=== PATIENT | male | born 1960 | race Caucasian/White ===

== ENCOUNTER 2018-03-28 10:45 | Emergency (ER) | payer BC ==
[2018-03-28] MEDS: MORPHINE SULFATE 10 MG/ML VIAL. IM (11:21)
[2018-03-28] MEDS: diazePAM 5 MG TABLET PO (11:21)
== END 2018-03-28 12:29 | disposition home or self-care (01) ==
LOC: ER 10:45
DX: G89.29 Other chronic pain (principal); M54.5 Low back pain; E78.00 Pure hypercholesterolemia, unspecified; I10 Essential (primary) hypertension
CPT/HCPCS: 96372; 99283; J2270

== ENCOUNTER 2018-04-01 21:56 | Emergency (ER) | payer BC ==
[2018-04-01] MEDS: KETOROLAC 60 MG/2 ML INJ. IM (23:31)
[2018-04-01] MEDS: DEXAMETHASONE SOD PHOS 20 MG/5 ML VIAL. IM (23:32)
== END 2018-04-01 23:35 | disposition home or self-care (01) ==
LOC: ER 23:35
DX: G89.29 Other chronic pain (principal); M54.41 Lumbago with sciatica, right side; M79.601 Pain in right arm; M79.651 Pain in right thigh; E78.00 Pure hypercholesterolemia, unspecified; I10 Essential (primary) hypertension
CPT/HCPCS: 96372; 99284; J1100; J1885

== ENCOUNTER 2018-04-03 18:22 | Emergency (ER) | payer BC ==
[2018-04-03] MEDS: IBUPROFEN 800 MG TABLET. PO (19:15)
[2018-04-03] MEDS: HYDROcodone/APAP 5/325MG 1 TAB TABLET PO (19:15)
== END 2018-04-03 19:31 | disposition home or self-care (01) ==
LOC: ER 18:22
DX: G89.29 Other chronic pain (principal); M54.9 Dorsalgia, unspecified; E78.00 Pure hypercholesterolemia, unspecified; I10 Essential (primary) hypertension
CPT/HCPCS: 99283

== ENCOUNTER → 2018-04-06 | Outpatient (CLI) | payer BC ==
[2018-04-03 18:30] VITALS: BP 129/79
[~2018-04-06] MED LIST: DIAZ5TAB PO; IBUP-1060 PO; OXYC-323 PO; TRAM50TA PO
--- NOTE | 2018-04-06 14:06 | KCIC ---
MRI of the lumbar spine without contrast 04/06/2018 CLINICAL HISTORY: Low back pain which radiates down the right leg TECHNIQUE: Unenhanced T1-weighted and T2-weighted sagittal and axial and inversion recovery sagittal images of the lumbar spine were obtained. FINDINGS: Comparison is made to radiographs lumbar spine dated 01/09/2006. Minimal S-shaped curvature of the thoracolumbar spine is seen. Degenerative signal changes and loss of height are seen involving the T12-L1 disc. Degenerative signal changes are seen involving the L3-4 disc. Degenerative signal changes are seen within the marrow surrounding the T12-L1 1 discs. The conus medullaris is normal in position and signal characteristics. At the T12-L1 disc space there is a moderate generalized disc bulge. Superimposed on this disc bulge is a focal central disc protrusion. This measures 5 mm in AP diameter. Degenerative changes are seen involving the facet joints bilaterally. There is prominence of the posterior epidural fat. The disc bulge is eccentric to the left. These findings when combined result in mild to moderate left greater than right central spinal canal stenosis. No neural foraminal stenosis is seen. At the L1-2 disc space is a mild generalized disc bulge. Superimposed on this disc bulge is a right paracentral focal disc protrusion. This measures 3 mm in AP diameter. Degenerative changes are seen involving the facet joints bilaterally. There is mild ligamentum flavum hypertrophy bilaterally. There is prominence of the posterior epidural fat. These findings when combined result in mild right greater than left central spinal canal stenosis. No neural foraminal stenosis is seen. At the L2-3 disc space there is a moderate generalized disc bulge. Degenerative changes are seen involving the facet joints bilaterally. The disc bulge is eccentric to the right. There is mild to moderate ligamentum flavum hypertrophy bilaterally. Prominence of the posterior epidural fat is seen. These findings when combined result in mild to moderate central spinal canal stenosis. No neural foraminal stenosis is seen. Superimposed on the disc bulge is a right paracentral/lateral focal disc herniation which extrudes inferiorly as an extruded disc fragment. This fragment measures 2.1 x 1.0 x 0.5 cm in craniocaudal, transverse and AP dimensions. It extrudes inferiorly to the mid/inferior aspect of the L3 vertebral body. This deforms the right anterolateral aspect of the thecal sac resulting in moderate to severe right lateral central spinal canal stenosis at the superior/mid L3 level and appears to impinge to some degree upon the right L3 nerve root within the right lateral aspect of the central spinal canal. At the L4-5 disc space there is a moderate generalized disc bulge. This is eccentric to the right. Degenerative changes are seen involving the facet joints bilaterally. There is mild to moderate ligamentum flavum hypertrophy bilaterally. There is prominence of the posterior epidural fat. Superimposed on the disc bulge is a right lateral focal disc protrusion. This measures 4 mm in AP diameter. These findings when combined result in mild to moderate central spinal canal stenosis. Mild right neural foraminal stenosis is seen. The left neural foramen is patent. At the L4-5 disc space there is a mild generalized disc bulge. Superimposed on this disc bulge is a focal central disc protrusion. This measures 3 mm in AP diameter. Degenerative changes are seen involving the facet joints bilaterally. There is moderate ligamentum flavum hypertrophy bilaterally. Small facet joint effusions are seen. These findings when combined result in mild central spinal canal stenosis. No neural foraminal stenosis is seen. At the L5-S1 disc space there is a mild generalized disc bulge. Degenerative changes are seen involving the facet joints bilaterally. These findings do not result in significant central spinal canal or neural foraminal stenosis. IMPRESSION: The changes of degenerative disc disease are seen involving the thoracolumbar junction and throughout the lumbar spine. These findings result in mild to moderate left greater than right central spinal canal stenosis at T12-L1, mild right greater than left central spinal canal stenosis at L1-2, mild to moderate central spinal canal stenosis at L2-3 and L4-5 and mild central spinal canal stenosis at L4-5. Mild right neural foraminal stenosis is seen at L4-5. At the L2-3 disc space a right paracentral/lateral focal disc herniation is seen which extrudes inferiorly as a disc fragment. This results in moderate to severe right lateral central spinal canal stenosis at the superior/mid L3 level and appears to impinge to some degree upon the right L3 nerve root within the right lateral aspect of the central spinal canal. Electronically signed by: Adelfo Montague MD (04/06/2018 2:02 PM) [email or web address]
== END | disposition home or self-care (01) ==
LOC: KCIC MRI 12:07
PROVIDERS: ATTEND Internal Medicine
DX: M51.16 Intervertebral disc disorders with radiculopathy, lumbar region (principal); M48.05 Spinal stenosis, thoracolumbar region; I10 Essential (primary) hypertension; E78.00 Pure hypercholesterolemia, unspecified; Z87.891 Personal history of nicotine dependence
CPT/HCPCS: 72148

== ENCOUNTER → 2021-01-07 | Outpatient (CLI) | payer BC, OTHER ==
[2018-04-03 18:30] VITALS: BP 129/79
[~2021-01-07] MED LIST changes: +IOHEXOL 180 MG/ML 10 ML VIAL. ONE; -OXYC-323 PO; +OXYC1TAB15 PO; +methylPREDNISolone ACETATE 40 MG/ML VIAL. ONE; +methylPREDNISolone ACETATE 80 MG/ML VIAL. ONE
--- NOTE | 2021-01-07 09:36 | PDOC4 ---
PROCEDURE Procedure Patient was consented for lumbar epidural steroid injection. Risks were dis cussed including but not limited to: Bleeding, infection, possibility of epidural hematoma and subsequent neurological compromise, dural puncture, headaches, spinal cord and/or nerve damage, side effects of steroid medication, and poor results regarding pain control. Patient understands and wished to proceed. Procedure is lumbar epidural steroid injection under local anesthetic using sterile prep and drape at the L3-4 level using C-arm fluoroscopic guidance in both AP and lateral views medications injected is 120 mg Depo-Medrol +10mL preservative-free normal saline and 2 mL contrast- condition at discharge is stable patient tolerated procedure well had no complications. MIKEY SCHNEIDER MD January 07, 2021 09:36
--- NOTE | 2021-01-07 09:36 | PDOC ---
Progress Note - Pain Clinic Date of Service: DOS: DATE: 01/07/21 TIME: 09:32 Diagnosis: Dx: Lumbar radiculopathy with lumbar degenerative disc disease and lumbar herniated disc History or Present Illness: HPI: .60-year-old male returns follow-up status post lumbar epidural steroid injection x1 last seen 2017. Patient reports he did very well near 100% improvement for about 4 months following the injection. Patient reports pain returned. He was busy doing other things and has put off getting treated until now patient reports the pain returned significantly low back right lower extremity as was previously posterior gluteus lateral thigh anterior thigh medial thigh medial groin into the medial knee on the right side worse with walking standing better with sitting or laying down is awakening from sleep about once every 3 hours or so patient reports is a 9 on scale 10 is worst 9 on average and 8 its least over the past week is a 9 today patient reports a stabbing constant can be unbearable patient is weightbearing standing walking changing positions. Patient reports no new motor or sensory deficits no new bowel or bladder incontinence or other complaints. Physical Exam: VS: Blood pressure is 122/77 pulse 79 respirations 18 temperature 98.3 F height is 6 feet 2 inches weight is 197 pounds PE: PHYSICAL EXAMINATION: GENERAL: The patient is awake, alert, oriented, appropriate, very pleasant demeanor HEENT: Shows normocephalic, atraumatic. Extraocular movements are intact and symmetrical. Oral cavity: Mucous membranes moist and pink. Dentition is intact. NECK: Shows anterior throat supple without palpable lymphadenopathy noted. Swallow reflex symmetrical. CHEST: Shows normal on inspection. Breath sounds are clear bilaterally, no rales rhonchi wheezes auscultated. HEART: Shows S1, S2 clear. No murmurs auscultated. ABDOMEN: Soft, nontender, nondistended, flat. No palpable organomegaly is noted. No rebound or guarding demonstrated. BACK: Shows spine grossly in the midline. Normal-appearing cervical lordotic curvature. There is slightly increased thoracic kyphosis, some minor flattening of the lumbar lordotic curvature. Lumbar paraspinous muscles show symmetrical on inspection, on palpation shows some moderate tenderness diffusely throughout the upper, middle and lower distribution of the paraspinous muscles without specific trigger points, without radiation of pain. The patient has good rotational motion of the lumbar spine, both laterally as well as extension and flexion without significant difficulty. No tenderness over the spinous processes, sacrum or sacroiliac regions. EXTREMITIES: Lower extremities show deep tendon reflexes 2+ in the patellar and tendo calcaneus tendons. Motor exam is 4 on a scale of 5 with right dorsiflexion, extension, quadriceps and hamstring flexion and 5/5 on the left. Peripheral pulses are 1+ posterior tibial. No peripheral edema is noted bilaterally. Lower extremities are warm and dry to touch, equal in color and appearance. SKIN: Shows warm and dry, good turgor. No edema. No sores, rashes or bruising throughout. Procedure: Procedure: Options discussed with the patient. Patient's old chart was reviewed his current medication regimen updated current review of systems updated today as well. We will proceed with a lumbar epidural steroid injection today with fluoroscopic guidance. Risks were discussed including but not limited to: Bleeding, infection, possibility of epidural hematoma and subsequent neurolo gical compromise, dural puncture, headaches, spinal cord and/or nerve damage, side effects of steroid medication, and poor results regarding pain control. Patient understands and wished to proceed. Patient will return to the clinic in approximate 2 weeks for follow-up, was counseled as return appointment, activity level, and side effects to be aware of. Medication Injected: Med Injected: Procedure is lumbar epidural steroid injection under local anesthetic using sterile prep and drape at the L3-4 level using C-arm fluoroscopic guidance in both AP and lateral views medications injected is 120 mg Depo-Medrol +10mL preservative-free normal saline and 2 mL contrast- condition at discharge is stable patient tolerated procedure well had no complications. Condition at Discharge: Condition at Discharge: Condition at discharge is stable, patient tolerated the procedure well and had no complications. MIKEY SCHNEIDER MD January 07, 2021 09:36
== END | disposition home or self-care (01) ==
LOC: PNCL 08:20
PROVIDERS: ATTEND Anesthesiology
DX: M51.16 Intervertebral disc disorders with radiculopathy, lumbar region (principal); F17.210 Nicotine dependence, cigarettes, uncomplicated; Z79.899 Other long term (current) drug therapy; Z72.89 Other problems related to lifestyle
CPT/HCPCS: 62323; J1030; J1040; Q9965

== ENCOUNTER → 2021-01-21 | Outpatient (CLI) | payer OTHER ==
[2018-04-03 18:30] VITALS: BP 129/79
--- NOTE | 2021-01-21 10:04 | PDOC ---
Progress Note - Pain Clinic Date of Service: DOS: DATE: 01/21/21 TIME: 10:02 Diagnosis: Dx: Lumbar radiculopathy with lumbar degenerative disease and lumbar herniated disc History or Present Illness: HPI: 60-year-old male returns in follow-up status post lumbar epidural steroid injection x1. Patient reports 50% improvement for the first week or so with pain returning in the low back and right lower extremity posterior gluteus lateral thigh anterior thigh medial thigh on the right with walking standing changing positions patient reports initially was doing much better with distance walking doing household activities work activities as well as sleeping better patient reports he still sleeps fairly well at night does not awaken from sleep most nights. Patient reports his pain is a 9 on scale 10 is worse over the past week 9 on average 8 its least is a 9 today patient scribes as constant aching dull burning sometimes stabbing cramping and shooting in the right leg. Patient reports no new motor or sensory deficits no new bowel or bladder incontinence. Physical Exam: VS: Blood pressure is 117/76 pulse 78 respirations 18 temperature 98.2 F height is 6 feet 2 inches weight is 198 pounds PE: PHYSICAL EXAMINATION: GENERAL: The patient is awake, alert, oriented, appropriate, very pleasant demeanor HEENT: Shows normocephalic, atraumatic. Extraocular movements are intact and symmetrical. Oral cavity: Mucous membranes moist and pink. Dentition is intact. NECK: Shows anterior throat supple without palpable lymphadenopathy noted. Swallow reflex symmetrical. CHEST: Shows normal on inspection. Breath sounds are clear bilaterally, no rales or rhonchi auscultated. HEART: Shows S1, S2 clear. No murmurs auscultated. ABDOMEN: Soft, nontender, nondistended, obese. No palpable organomegaly is noted. No rebound or guarding demonstrated. BACK: Shows spine grossly in the midline. Normal-appearing cervical lordotic curvature. There is slightly increased thoracic kyphosis, some minor flattening of the lumbar lordotic curvature. Lumbar paraspinous muscles show symmetrical on inspection, on palpation shows some moderate tenderness diffusely throughout the upper, middle and lower distribution of the paraspinous muscles without specific trigger points, without radiation of pain. The patient has good rotational motion of the lumbar spine, both laterally as well as extension and flexion without significant difficulty. EXTREMITIES: Lower extremities show deep tendon reflexes 2+ in the patellar and tendo calcaneus tendons. Motor exam is 4 on a scale of 5 with right dorsiflexion, extension, quadriceps and hamstring flexion and 5/5 on the left. Peripheral pulses are 1+ posterior tibial. No peripheral edema is noted bilaterally. Lower extremities are warm and dry to touch, equal in color and appearance. SKIN: Shows warm and dry, good turgor. No edema. No sores, rashes or bruising throughout. Procedure: Procedure: Options were discussed with the patient. Patient chart was reviewed his current medication regimen updated current review of systems updated today as well. We will proceed with a lumbar epidural steroid injection as a second in the series with fluoroscopic guidance. Risks were discussed including but not limited to: Bleeding, infection, possibility of epidural hematoma and subsequent neurological compromise, dural puncture, headaches, spinal cord and/or nerve damage, side effects of steroid medication, and poor results regarding pain control. Patient understands and wished to proceed. Patient will return to the clinic in approximate 2 weeks for follow-up, was counseled as to return appointment activity level and side effects to be aware of. Medication Injected: Med Injected: Procedure is lumbar epidural steroid injection under local anesthetic using sterile prep and drape at the L3-4 level using C-arm fluoroscopic guidance in both AP and lateral views medications injected is 120 mg Depo-Medrol +10mL preservative-free normal saline and 2 mL contrast- condition at discharge is stable patient tolerated procedure well had no complications. Condition at Discharge: Condition at Discharge: Condition at discharge stable, patient tolerated procedure well and had no complications. MIKEY SCHNEIDER MD Jan 21, 2021 10:04
--- NOTE | 2021-01-21 10:05 | PDOC4 ---
PROCEDURE Procedure Patient was consented for lumbar epidural steroid injection. Risks were dis cussed including but not limited to: Bleeding, infection, possibility of epidural hematoma and subsequent neurological compromise, dural puncture, headaches, spinal cord and/or nerve damage, side effects of steroid medication, and poor results regarding pain control. Patient understands and wished to proceed. Patient will return to the clinic in approximate 2 weeks for follow-up, was counseled as return appointment activity level and side effects to be aware of. Procedure is lumbar epidural steroid injection under local anesthetic using sterile prep and drape at the L3-4 level using C-arm fluoroscopic guidance in both AP and lateral views medications injected is 120 mg Depo-Medrol +10mL preservative-free normal saline and 2 mL contrast- condition at discharge is stable patient tolerated procedure well had no complications. MIKEY SCHNEIDER MD Jan 21, 2021 10:05
== END | disposition home or self-care (01) ==
LOC: PNCL 09:16
PROVIDERS: ATTEND Anesthesiology
DX: M51.16 Intervertebral disc disorders with radiculopathy, lumbar region (principal); F17.210 Nicotine dependence, cigarettes, uncomplicated; Z79.899 Other long term (current) drug therapy; Z72.89 Other problems related to lifestyle
CPT/HCPCS: 62323; J1030; J1040; Q9965

== ENCOUNTER → 2021-02-04 | Outpatient (CLI) | payer OTHER ==
[2018-04-03 18:30] VITALS: BP 129/79
--- NOTE | 2021-02-04 09:54 | PDOC ---
Progress Note - Pain Clinic Date of Service: DOS: DATE: 02/04/21 TIME: 09:52 Diagnosis: Dx: Lumbar radiculopathy with lumbar degenerative disease and lumbar herniated History or Present Illness: HPI: 60-year-old male returns for follow-up status post lumbar epidural steroid injections x2. Patient reports about 50% improvement overall pain in the low back and right lower extremity. Patient reports he is increase his activity with greater ease and comfort walking greater distances sleeping better at night generally is not awakening from sleep at this time patient reports no new motor or sensory deficits no new bowel or bladder incontinence rates his pain a 7 on scale 10 is worse over the past week through 5 on average 4 its least is a 5 today. Patient describes pain as shooting on and off intensity in the low back and the right posterior gluteus lateral thigh anterior thigh medial thigh into the groin to some degree and into the medial lower leg on the right side. Patient reports no other complaints at this time. Physical Exam: VS: Blood pressure is 121/69 pulse 85 respirations 18 temperature 98.2 F height 6 feet 2 inches weight is 200 pounds PE: PHYSICAL EXAMINATION: GENERAL: The patient is awake, alert, oriented, appropriate, very pleasant demeanor HEENT: Shows normocephalic, atraumatic. Extraocular movements are intact and symmetrical. Oral cavity: Mucous membranes moist and pink. Dentition is intact. NECK: Shows anterior throat supple without palpable lymphadenopathy noted. Swallow reflex symmetrical. CHEST: Shows normal on inspection. Breath sounds are clear bilaterally. HEART: Shows S1, S2 clear. No murmurs auscultated. ABDOMEN: Soft, nontender, nondistended, obese BACK: Shows spine grossly in the midline. Normal-appearing cervical lordotic curvature. There is slightly increased thoracic kyphosis, some minor flattening of the lumbar lordotic curvature. Lumbar paraspinous muscles show symmetrical on inspection, on palpation shows some moderate tenderness diffusely throughout the upper, middle and lower distribution of the paraspinous muscles without specific trigger points, without radiation of pain. The patient has good rotational motion of the lumbar spine, both laterally as well as extension and flexion without significant difficulty. No tenderness over the spinous processes, sacrum or sacroiliac regions. EXTREMITIES: Lower extremities show deep tendon reflexes 2+ in the patellar and tendo calcaneus tendons. Motor exam is full on a scale of 5 with right dorsiflexion, extension, quadriceps and hamstring flexion and 5/5 on the left. Peripheral pulses are 1+ posterior tibial. No peripheral edema is noted bilaterally. Lower extremities are warm and dry. SKIN: Shows warm and dry, good turgor. No edema. No sores, rashes or bruising throughout. Procedure: Procedure: Options were discussed with the patient. Patient chart reviewed his current medication regimen updated current review of systems updated today as well. We will proceed with a third in the series lumbar epidural to injection stable fluoroscopic guidance. Risks were discussed including but not limited to: Bleeding, infection, possibility of epidural hematoma and subsequent neurological compromise, dural puncture, headaches, spinal cord and/or nerve damage, side effects of steroid medication, and poor results regarding pain control. Patient understands and wished to proceed. Patient will return to clinic in approximate 2 weeks for follow-up, was counseled as to return appointment activity level and side effects beware of. Medication Injected: Med Injected: Procedure is lumbar epidural steroid injection under local anesthetic using sterile prep and drape at the L3-4 level using C-arm fluoroscopic guidance in both AP and lateral views medications injected is 120 mg Depo-Medrol +10mL preservative-free normal saline and 2 mL contrast- condition at discharge is stable patient tolerated procedure well had no complications. Condition at Discharge: Condition at Discharge: Condition at discharge is stable, patient tolerated the procedure well and had no complications. MIKEY SCHNEIDER MD Feb 04, 2021 09:54
--- NOTE | 2021-02-04 09:55 | PDOC4 ---
PROCEDURE Procedure Patient was consented for lumbar epidural steroid injection. Risks were dis cussed including but not limited to: Bleeding, infection, possibility of epidural hematoma and subsequent neurological compromise, dural puncture, headaches, spinal cord and/or nerve damage, side effects of steroid medication, and poor results regarding pain control. Patient understands and wished to proceed. Procedure is lumbar epidural steroid injection under local anesthetic using sterile prep and drape at the L3-4 level using C-arm fluoroscopic guidance in both AP and lateral views medications injected is 120 mg Depo-Medrol +10mL preservative-free normal saline and 2 mL contrast- condition at discharge is stable patient tolerated procedure well had no complications. MIKEY SCHNEIDER MD Feb 04, 2021 09:55
== END | disposition home or self-care (01) ==
LOC: PNCL 09:15
PROVIDERS: ATTEND Anesthesiology
DX: M51.16 Intervertebral disc disorders with radiculopathy, lumbar region (principal); F17.210 Nicotine dependence, cigarettes, uncomplicated; Z79.899 Other long term (current) drug therapy; Z72.89 Other problems related to lifestyle
CPT/HCPCS: 62323; J1030; J1040; Q9965

== ENCOUNTER → 2021-12-24 | Outpatient (CLI) | payer OTHER ==
[2018-04-03 18:30] VITALS: BP 129/79
[~2021-12-24] MED LIST changes: +DEXAMETHASONE PRES.FREE 10 MG/ML VIAL. ONE; +GABA300C18 PO; +GLIP5TAB10 PO; +LISI20TA18 PO; +METF500T16 PO; +OMEP40CA7 PO; +SIMV40TA18 PO; -methylPREDNISolone ACETATE 40 MG/ML VIAL. ONE; -methylPREDNISolone ACETATE 80 MG/ML VIAL. ONE
--- NOTE | 2021-12-24 15:46 | PDOC ---
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 Patient reports he did very well after lumbar epidural steroid injection the pain now more in the right lower extremity than it was previously of just in the low back patient reports in the right leg posterior gluteus posterior thigh lateral thigh anterior thigh medial thigh medial groin at times as well and more on the posterior aspect of the leg than it has been before patient reports has been increasing for about 6 or 7 weeks now was not previously Hund percent improved until that time since his last visit in January. Patient reports the pain is a 9 on scale 10 is worse over the past week 9 on average 6 at its least and is a 7 today patient report is severe with walking standing change positions aching sharp dull in the back and shooting and radiating burning in the right leg. Patient reports no loss of motor function no bowel or bladder incontinence. Patient not had any recent diagnostic studies of the lumbar spine. Patient reports he is doing stretching and strength exercises at home as well as heat and massage therapies without significant reduction in pain. Patient been taking [id number] Tylenol as well as Advil without significant reduction as well remains on gabapentin for neuropathic pain but has not seen no difference with the pain. Physical Exam: VS: Blood pressure is 136/78 pulse is 81 respirations are 18 temperature 97.5 F height is 6 foot 2 inches weight is 208 pounds. PE: PHYSICAL EXAMINATION: GENERAL: The patient is awake, alert, oriented, appropriate, very pleasant in demeanor HEENT: Shows normocephalic, atraumatic. Extraocular movements are intact and symmetrical. Oral cavity: Mucous membranes moist and pink. Dentition is intact. NECK: Shows anterior throat supple without palpable lymphadenopathy noted. Swallow reflex symmetrical. CHEST: Shows normal on inspection. Breath sounds are clear bilaterally, distant but no rales rhonchi or wheezes auscultated. HEART: Shows S1, S2 clear. No murmurs auscultated. ABDOMEN: Soft, nontender, nondistended. No palpable organomegaly is noted. BACK: Shows spine grossly in the midline. Normal-appearing cervical lordotic curvature. There is mildly increased thoracic kyphosis, some minor flattening o f the lumbar lordotic curvature. Lumbar paraspinous muscles show symmetrical on inspection, on palpation shows some moderate tenderness diffusely throughout the upper, middle and lower distribution of the paraspinous muscles without specific trigger points, without radiation of pain. The patient has good rotational motion of the lumbar spine, both laterally as well as extension and flexion without significant difficulty. EXTREMITIES: Lower extremities show deep tendon reflexes 2+ in the patellar and tendo calcaneus tendons. Motor exam is 4 on a scale of 5 with right dorsiflexion, extension, quadriceps and hamstring flexion and 5/5 on the left. Peripheral pulses are 1+ posterior tibial. No peripheral edema is noted bilaterally. Lower extremities are warm and dry to touch, equal in color and appearance. Right leg raise is noted to be positive on the right at approximate 40 degrees decreased with knee flexion left side is negative. SKIN: Shows warm and dry, good turgor. No edema. No sores, rashes or bruising throughout. Procedure: Procedure: Options discussed with the patient. Patient's chart was reviewed his current medication regimen updated current review of systems updated today as well. We will proceed with a lumbar epidural steroid injection today with fluoroscopic guidance. Risks were discussed including but not limited to: Bleeding, in fection, possibility of epidural hematoma and subsequent neurological compromise, dural puncture, headaches, spinal cord and/or nerve damage, side effects of steroid medication, and poor results regarding pain control. Patient understands and wished to proceed. Patient will return to clinic in approximately 2 weeks for follow-up, was counseled as to return appointment, activity level, and side effects to be aware of. Medication Injected: Med Injected: Procedure is lumbar epidural steroid injection under local anesthetic using sterile prep and drape at the L3-4 level using C-arm fluoroscopic guidance in both AP and lateral views medications injected is 20 mg dexamethasone +10mL preservative-free normal saline and 2 mL contrast- condition at discharge is stable patient tolerated procedure well had no complications. Condition at Discharge: Condition at Discharge: Condition at discharge stable, patient tolerated the procedure well and had no complications. MIKEY SCHNEIDER MD December 24, 2021 15:46
== END | disposition home or self-care (01) ==
LOC: PNCL 14:17
PROVIDERS: ATTEND Anesthesiology
DX: M51.16 Intervertebral disc disorders with radiculopathy, lumbar region (principal); F17.210 Nicotine dependence, cigarettes, uncomplicated; Z72.89 Other problems related to lifestyle; Z79.899 Other long term (current) drug therapy
CPT/HCPCS: 62323; J1100; Q9965

== ENCOUNTER → 2022-01-07 | Outpatient (CLI) | payer OTHER ==
[2018-04-03 18:30] VITALS: BP 129/79
--- NOTE | 2022-01-07 14:19 | PDOC4 ---
Procedure Note: ICD 10 Code: ICD 10 Code: M54.16 M51.36 Procedure Note: Patient was consented for lumbar epidural steroid injection with fluoroscopic guidance. Risks were discussed including but not limited to: Bleeding, infection, possibility of epidural hematoma and subsequent neurological compromise, dural puncture, headaches, spinal cord and/or nerve damage, side effects of steroid medication, and poor results regarding pain control. Patient understands and wished to proceed. Procedure is lumbar epidural steroid injection under local anesthetic using sterile prep and drape at the L3-4 level using C-arm fluoroscopic guidance in both AP and lateral views medications injected is 20 mg dexamethasone +10mL preservative-free normal saline and 2 mL contrast- condition at discharge is stable patient tolerated procedure well had no complications. MIKEY SCHNEIDER MD January 07, 2022 14:19
--- NOTE | 2022-01-07 14:19 | PDOC ---
Progress Note - Pain Clinic Date of Service: DOS: DATE: 01/07/22 TIME: 14:16 Diagnosis: Dx: Lumbar radiculopathy lumbar degenerative disease and lumbar herniated disc History or Present Illness: HPI: 61-year-old male returns for follow-up status post lumbar epidural steroid injection x1. Patient reports did very well about 80% improvement for the first few weeks then pain returning over the past few days to 30% overall improvement patient reports the pain is now also in the left lower extremity which is new for him was primarily on the right side previously in the posterior gluteus lateral thigh anterior thigh medial thigh and posterior thigh is now on the left side as well in the same distribution patient reports no recent injury or accident that he is aware of some rainy weather has caused the pain to be increased he believes in the last few days as well but now on the left side which is always been on the right side. Patient ports radiating sharp dull in the back aching cramping and stabbing can be severe as well patient reports is worse with walking and standing changing positions better with sitting or laying down generally does not awaken her from sleep at night if he is sitting down without a back support on a chair and because of the pain increases well patient rates pain as 8 on scale 10 is worse over the past week 6 on average 5 its least is a 5 today. Patient with no bowel or bladder incontinence no loss of motor function but significant fatigability of both lower extremities at this time. Physical Exam: VS: Blood pressure is 121/70 pulse 77 respirations 18 temperature 98.3 F height 6 feet 2 inches weight 206 pounds. PE: PHYSICAL EXAMINATION: GENERAL: The patient is awake, alert, oriented, appropriate, very pleasant in demeanor HEENT: Shows normocephalic, atraumatic. Extraocular movements are intact and symmetrical. Oral cavity: Mucous membranes moist and pink. Dentition is intact. NECK: Shows anterior throat supple without palpable lymphadenopathy noted. Swallow reflex symmetrical. CHEST: Shows normal on inspection. Breath sounds are clear bilaterally. HEART: Shows S1, S2 clear. No murmurs auscultated. ABDOMEN: Soft, nontender, nondistended. No palpable organomegaly is noted. BACK: Shows spine grossly in the midline. Normal-appearing cervical lordotic curvature. There is mildly increased thoracic kyphosis, some minor flattening of the lumbar lordotic curvature. Lumbar paraspinous muscles show symmetrical on inspection, on palpation shows some moderate tenderness diffusely throughout the upper, middle and lower distribution of the paraspinous muscles without specific trigger points, without radiation of pain. The patient has good rotational motion of the lumbar spine, both laterally as well as extension and flexion without significant difficulty. EXTREMITIES: Lower extremities show deep tendon reflexes 2+ in the patellar and tendo calcaneus tendons. Motor exam is 4 on a scale of 5 with right dorsiflexion, extension, quadriceps and hamstring flexion and 5/5 on the left. Peripheral pulses are 1 posterior tibial. No peripheral edema is noted bilaterally. Lower extremities are warm and dry to touch, equal in color and appearance. SKIN: Shows warm and dry, good turgor. No edema. No sores, rashes or bruising throughout. Procedure: Procedure: Options discussed with the patient. Patient's chart was reviewed his current medication regimen updated current review of systems updated today as well. We will proceed with a lumbar epidural steroid injection today with fluoroscopic guidance. Risks were discussed including but not limited to: Bleeding, infection, possibility of epidural hematoma and subsequent neurological compromise, dural puncture, headaches, spinal cord and/or nerve damage, side effects of steroid medication, and poor results regarding pain control. Patient understands and wished to proceed. Patient will return to the clinic in approximate 2 weeks for follow-up, was counseled as return appointment, active level, and side effects to be aware of. Medication Injected: Med Injected: Procedure is lumbar epidural steroid injection under local anesthetic using sterile prep and drape at the L3-4 level using C-arm fluoroscopic guidance in both AP and lateral views medications injected is 20 mg dexamethasone +10mL preservative-free normal saline and 2 mL contrast- condition at discharge is stable patient tolerated procedure well had no complications. Condition at Discharge: Condition at Discharge: Condition at discharge is stable, patient tolerated procedure well and had no complications. MIKEY SCHNEIDER MD January 07, 2022 14:19
== END | disposition home or self-care (01) ==
LOC: PNCL 13:18
PROVIDERS: ATTEND Anesthesiology
DX: M51.16 Intervertebral disc disorders with radiculopathy, lumbar region (principal); F17.210 Nicotine dependence, cigarettes, uncomplicated; Z79.84 Long term (current) use of oral hypoglycemic drugs; Z79.899 Other long term (current) drug therapy; Z72.89 Other problems related to lifestyle
CPT/HCPCS: 62323; J1100; Q9965